=== PATIENT | male | born 1960 | race Hispanic/Latino ===

== ENCOUNTER → 2019-06-08 | Outpatient (CLI) | payer BC ==
[~2019-06-08] MED LIST: IOPAMIDOL 370 MG/ML 200 ML INFUS..BTL INJ ONE; SODIUM CHLORIDE 0.9% 250ML 250 ML ONE; SODIUM CHLORIDE 0.9% 500ML 500 ML ONE; SODIUM CHLORIDE 0.9% 50ML 50 ML ONE
[2019-06-08 14:30] LABS: CREATININE, SERUM 1.31 mg/dL (0.72-1.25)
--- NOTE | 2019-06-08 16:33 | Diagnostic Imaging Report ---
EXAM: CT Abdomen and Pelvis WITH intravenous contrast INDICATION: Neoplasm of unspecified origin COMPARISON: None. TECHNIQUE: Abdomen and pelvis were scanned utilizing a multidetector helical scanner from the lung base to the pubic symphysis after administration of IV contrast. Coronal and sagittal reformations were obtained. Routine protocol was performed. Scan was performed during portal venous phase. IV CONTRAST: 100mL of Isovue 370 ORAL CONTRAST: None RADIATION DOSE: Total DLP: 781 mGy*cm Dose modulation, iterative reconstruction, and/or weight based adjustment of the mA/kV was utilized to reduce the radiation dose to as low as reasonably achievable. FINDINGS: LOWER THORAX: Normal. HEPATOBILIARY: Multiple low-attenuation subcentimeter right and left hepatic hypodensities, too small to adequately characterize but likely cysts based on attenuation. No biliary ductal dilation. Cholelithiasis without CT evidence of cholecystitis. SPLEEN: No splenomegaly. PANCREAS: No focal masses or ductal dilatation. ADRENALS: No adrenal nodules. KIDNEYS/URETERS: No hydronephrosis, renal calculi, or solid renal mass lesions. PELVIC ORGANS/BLADDER: Unremarkable. PERITONEUM / RETROPERITONEUM: No free air or fluid. LYMPH NODES: No lymphadenopathy. VESSELS: Moderate atherosclerotic calcifications of the nonaneurysmal abdominal aorta and major branches. GI TRACT: Diverticulosis without CT evidence of diverticulitis. No abnormal bowel thickening. No bowel obstruction. Normal appendix. BONES AND SOFT TISSUES: No acute osseous injury. No suspicious lytic or blastic lesions. Anterior abdominal hernia mesh repair. IMPRESSION: No specific evidence of metastatic disease in the abdomen or pelvis. Cholelithiasis without CT evidence of cholecystitis. Signed by: Eric Roth MD on 06/08/2019 4:30 PM
== END ==
LOC: CT 13:37
PROVIDERS: ATTEND Urology
DX: D40.10 Neoplasm of uncertain behavior of unspecified testis (principal)
CPT/HCPCS: 36415; 74177; 82565; 84520; 96360; J7040; J7050; Q9967

== ENCOUNTER → 2019-06-30 | Day surgery (SDC) | payer BC ==
[2019-06-29 12:32] LABS: ANION GAP 12.6 mmol/L (8-16); CREATININE, SERUM 1.26 mg/dL (0.72-1.25); POTASSIUM 4.6 mmol/L (3.5-5.1)
[~2019-06-30] MED LIST changes: +ACETAMINOPHEN 1000 MG/100 ML IV ONE; +ATORVASTATIN CA20 MG PO; +BACITRACIN ZINC 15 GM OINT ONE; +BUPIVACAINE 0.25% 30ML SDV INJ ONE; +CEFAZOLIN SOD 1 GM/NS 50ML 100 ML IV ONE; +DESFLURANE 240 ML BTL INH ONE; +FARXIGA5 MG PO; +FENTANYL CITRATE/PF 100MCG/2 ML INJ ONE; +GABAPENTIN300 MG PO; +GLIPIZIDE5 MG PO; +INSULIN REGULAR, HUMAN 100 UNIT/1 ML 3ML VIAL ONE; -IOPAMIDOL 370 MG/ML 200 ML INFUS..BTL INJ ONE; +LIDOCAINE HCL 2% LOCAL INJ 5 ML SDV VIAL INJ ONE; +METFORMIN HCL500 MG PO; +METOCLOPRAMIDE HCL 10 MG/2ML VIAL ONE; +MIDAZOLAM HCL 2 MG/2 ML VIAL ONE; +ONDANSETRON HCL INJ 2MG/ML 2ML 2 MG/ML VIAL ONE; +PIOGLITAZONE HC45 MG PO; +PROPOFOL IV EMULSION 10 MG/ML 20 ML VIAL ONE; -SODIUM CHLORIDE 0.9% 250ML 250 ML ONE; -SODIUM CHLORIDE 0.9% 500ML 500 ML ONE; -SODIUM CHLORIDE 0.9% 50ML 50 ML ONE; +VASOTEC10 MG PO
--- OUTSIDE RECORDS SUMMARY | 2019-06-30 06:53 | XMS REPORT ---
[facility] Address Unknown Phone Unavailable Care Team Providers Care Project Manager Name Role Phone CONNIE AMAYA Unavailable Unavailable Problems This patient has no known problems. Allergies, Adverse Reactions, Alerts This patient has no known allergies or adverse reactions. Medications This patient has no known medications. Results Test Description Test Time Test Comments Text Results Atomic Results Result Comments CT ABDOMEN/PELVIS W 2019-06-08 16:23:00 [place] [address] Patient Name: SILVA SETHI MR #: [id number] : 1960 Age/Sex: 59/M Req #: [id number] [facility] Physician: Ordered by: CONNIE AMAYA MD Report #: [id number] Location: CT Room/Bed: Procedure: [id number] CT/CT ABDOMEN/PELVIS W Exam Date: 06/08/19 Exam Time: 1515 REPORT STATUS: Signed EXAM: CT Abdomen and Pelvis WITH intravenous contrast INDICATION: Neoplasm of unspecified origin COMPARISON: None. TECHNIQUE: Abdomen and pelvis were scanned utilizing a multidetector helical scanner from the lung base to the pubic symphysis after administration of IV contrast. Coronal and sagittal reformations were obtained. Routine protocol was performed. Scan was performed during portal venous phase. IV CONTRAST: 100mL of Isovue 370 ORAL CONTRAST: None RADIATION DOSE: Total DLP: 781 mGy*cm Dose modulation, iterative reconstruction, and/or weight based adjustment of the mA/kV was utilized to reduce the radiation dose to as low as reasonably achievable. FINDINGS: LOWER THORAX: Normal. HEPATOBILIARY: Multiple low-attenuation subcentimeter right and left hepatic hypodensities, too small to adequately characterize but likely cysts based on attenuation. No biliary ductal dilation. Cholelithiasis without CT evidence of cholecystitis. SPLEEN: No splenomegaly. PANCREAS: No focal masses or ductal dilatation. ADRENALS: No adrenal nodules. KIDNEYS/URETERS: No hydronephrosis, renal calculi, or solid renal mass lesions. PELVIC ORGANS/BLADDER: Unremarkable. PERITONEUM / RETROPERITONEUM: No free air or fluid. LYMPH NODES: No lymphadenopathy. VESSELS: Moderate atherosclerotic calcifications of the nonaneurysmal abdominal aorta and major branches. GI TRACT: Diverticulosis without CT evidence of diverticulitis. No abnormal bowel thickening. No bowel obstruction. Normal appendix. BONES AND SOFT TISSUES: No acute osseous injury. No suspicious lytic or blastic lesions. Anterior abdominal hernia mesh repair. IMPRESSION: No specific evidence of metastatic disease in the abdomen or pelvis. Cholelithiasis without CT evidence of cholecystitis. Signed by: Maggie Roth MD on 06/08/2019 4:30 PM Dictated By: MAGGIE ROTH MD 1630 Transcribed By: AMIRAH on 06/08/19 1630 COPY TO: CONNIE AMAYA MD
[2019-06-30 11:33] VITALS: BP 157/86
--- NOTE | 2019-06-30 18:51 | Operative Report ---
DATE OF PROCEDURE: 06/30/2019 SURGEON: Amanda Haney MD SERVICE: Urology. PREOPERATIVE DIAGNOSES: 1. Large scrotal mass on the right side. 2. Right hydrocele. POSTOPERATIVE DIAGNOSES: 1. Large scrotal mass on the right side. 2. Right hydrocele. 3. Testicular mass. 4. Scrotal lipoma. OPERATIONS PERFORMED: 1. Excision of the scrotal lipoma. 2. Excision of hydrocele and radical orchiectomy on the right side. ANESTHESIA: General. CLINICAL INDICATION NOTE: A 59-year-old patient with large scrotal mass that grew over several months. The patient is being brought for radical orchiectomy on the right side. Procedure was discussed with the patient. Potential benefit and complication were discussed, explained and accepted. DESCRIPTION OF PROCEDURE AND FINDINGS: After proper level of anesthesia was achieved, the patient was placed in supine position, prepped and draped in a sterile fashion. A lower inguinal incision was made. Dissection was then done to the external inguinal canal. The cord was identified and controlled with a Santana drain. Following this, careful dissection was done of the mass. Hydrocele was found, part of it were excised and evacuated. The scrotal lipoma was removed and sent to pathology separately. Sharp and electrical dissection of the large scrotal mass was then done. The mass was delivered through the incision. The vas deferens was . Double clipped with vessel clips and transected. Spermatic cord was dissected free. Incision was made in the external inguinal canal and the cord was tied with 0 silk, long silk thread was left in case needed in the future. Then the mass was removed and sent to pathology. Following this, the incision in the external inguinal fascia was closed using 0-Vicryl interrupted sutures. The wound was irrigated with solution. Local anesthesia, Marcaine 0.25% was used and infiltrated tissue was approximated with 3-0 chromic catgut and the skin was approximated with skin leon. Estimated blood loss none. The patient was transferred in satisfactory condition to recovery room. He will be followed as outpatient. Amanda Haney MD [place]/MODL /[id number]
== END | disposition home or self-care (01) ==
LOC: OR 06:52
PROVIDERS: ATTEND Urology
DX: C62.91 Malignant neoplasm of right testis, unspecified whether descended or undescended (principal); D17.79 Benign lipomatous neoplasm of other sites; N43.3 Hydrocele, unspecified; J45.909 Unspecified asthma, uncomplicated; I10 Essential (primary) hypertension; E78.5 Hyperlipidemia, unspecified; E11.9 Type 2 diabetes mellitus without complications; M19.90 Unspecified osteoarthritis, unspecified site; E66.9 Obesity, unspecified; K21.9 Gastro-esophageal reflux disease without esophagitis; K58.9 Irritable bowel syndrome, unspecified; M54.9 Dorsalgia, unspecified; F17.210 Nicotine dependence, cigarettes, uncomplicated; Z91.010 Allergy to peanuts; Z01.810 Encounter for preprocedural cardiovascular examination; Z79.84 Long term (current) use of oral hypoglycemic drugs
CPT/HCPCS: 36415 ×2; 54530; 55040; 80048; 82948; 88309; 88342; 93005; J0131; J0690; J2001; J2250; J2405; J2704; J2765; J3010; J1817

== ENCOUNTER → 2020-01-06 | Outpatient (CLI) | payer BC ==
[~2020-01-06] MED LIST changes: -ACETAMINOPHEN 1000 MG/100 ML IV ONE; -BACITRACIN ZINC 15 GM OINT ONE; -BUPIVACAINE 0.25% 30ML SDV INJ ONE; -CEFAZOLIN SOD 1 GM/NS 50ML 100 ML IV ONE; -DESFLURANE 240 ML BTL INH ONE; -FENTANYL CITRATE/PF 100MCG/2 ML INJ ONE; -INSULIN REGULAR, HUMAN 100 UNIT/1 ML 3ML VIAL ONE; -LIDOCAINE HCL 2% LOCAL INJ 5 ML SDV VIAL INJ ONE; -METOCLOPRAMIDE HCL 10 MG/2ML VIAL ONE; -MIDAZOLAM HCL 2 MG/2 ML VIAL ONE; -ONDANSETRON HCL INJ 2MG/ML 2ML 2 MG/ML VIAL ONE; -PROPOFOL IV EMULSION 10 MG/ML 20 ML VIAL ONE
== END ==
LOC: CT 15:20
PROVIDERS: ATTEND Internal Medicine Hematology & Oncology
DX: C62.90 Malignant neoplasm of unspecified testis, unspecified whether descended or undescended (principal)
CPT/HCPCS: 71250; 74176

== ENCOUNTER → 2020-05-07 | Outpatient (CLI) | payer BC ==
[~2020-05-07] MED LIST changes: +IOPAMIDOL 370 MG/ML 200 ML INFUS..BTL INJ ONE
[2020-05-07 08:39] LABS: BLOOD UREA NITROGEN 24 mg/dL (7-26); BUN/CREATININE RATIO 20 (6-25); EST GLOMERULAR FILTRATION RATE > 60 ML/MIN (60-)
== END ==
LOC: CT 07:20
PROVIDERS: ATTEND Internal Medicine Hematology & Oncology
DX: C62.90 Malignant neoplasm of unspecified testis, unspecified whether descended or undescended (principal)
CPT/HCPCS: 36415; 71260; 74177; 82565; 84520; Q9967

== ENCOUNTER → 2023-01-20 | Outpatient (REF) | payer BC ==
[~2023-01-20] MED LIST changes: +DICYCLOMINE HCL10 MG PO; +FAMOTIDINE20 MG PO; +GLIPIZIDE ER5 MG PO; -IOPAMIDOL 370 MG/ML 200 ML INFUS..BTL INJ ONE; +METFORMIN HCL500 M2 PO; +METOCLOPRAMIDE10 MG PO; +METOPROLOL SUCC25 MG PO; +ONDANSETRON ODT4 MG PO; +ONDANSETRON ODT8 MG PO; +PEPCID20 MG PO; +PROTONIX20 MG PO; +SUCRALFATE1 GM PO; +VASOTEC10 M1 PO; +VENTOLIN HFA18 GM INH
== END ==
LOC: NM 08:25
PROVIDERS: ATTEND Nurse Practitioner
DX: K80.20 Calculus of gallbladder without cholecystitis without obstruction (principal)
CPT/HCPCS: 78227; A9537